=== PATIENT | female | born 1955 ===

== ENCOUNTER → 2018-09-16 | Day surgery (SDC) | payer OTHER ==
[~2018-09-16] MED LIST: Propofol 10 mg/ml Inj (20 ML) ONE
[2018-09-16 13:30] VITALS: BMI 24.7
[2018-09-16 13:51] VITALS: RESP 18
[2018-09-16 13:52] VITALS: TEMP 97.8
[2018-09-16 15:06] VITALS: BP 102/61; PULSE 87; O2SAT 99
== END | disposition home or self-care (01) ==
LOC: H.ENDO 08:17
PROVIDERS: ATTEND Internal Medicine Gastroenterology
DX: Z86.010 Personal history of colon polyps (principal); K64.8 Other hemorrhoids; K57.30 Diverticulosis of large intestine without perforation or abscess without bleeding; E78.5 Hyperlipidemia, unspecified; E05.90 Thyrotoxicosis, unspecified without thyrotoxic crisis or storm
CPT/HCPCS: 45378; J2001; J2704